=== PATIENT | female | born 1990 | race African-American/Black ===

== ENCOUNTER 2020-12-18 12:19 | Emergency (ER) | payer MEDICAID ==
[~2020-12-18] VITALS: Ht 165.1 cm; Wt 62.7 kg
--- NOTE | 2020-12-18 12:59 | NUR ---
PT C/O N/V TIMES 2 WEEKS. PT IS PREGANANT AND ESTIMATES HERSELF TO BE 12 WEEKS ALONG. PT HAD LIGHT SPOTTING A WEEK AGO. NO HEAVY BLEEDING. THIS IS THE PT'S SECOND PREGANANCY. 1 LIVE CHILD, 8 YEAR OLD FEMALE. PT DENIES DIARRHEA.
[2020-12-18] MEDS ORDERED: ONDANSETRON ODT 4 MG ONE (13:07)
[2020-12-18 13:12] LABS: MICROSCOPIC NOT IND
[2020-12-18 13:20] LABS: BASOPHILS % (AUTO) 1 % (0-1); EOSINOPHILS % (AUTO) 2 % (1-7); LYMPHOCYTES % (AUTO) 20 % (22-44); MEAN CORPUSCULAR HEMOGLOBIN 30.4 pg (27.0-34.8); MEAN CORPUSCULAR HGB CONC 34.3 g/dL (32.4-35.8); MEAN PLATELET VOLUME 8.1 fL (7.4-10.4); MONOCYTES % (AUTO) 11 % (2-9); NEUTROPHILS % (AUTO) 67 % (42-75); PLATELET COUNT 293 x10^3/uL (130-400); RED BLOOD COUNT 3.99 x10^6/uL (3.82-5.3); RED CELL DISTRIBUTION WIDTH 13.5 % (9.6-15.2)
[2020-12-18 13:22] LABS: MD NO
--- NOTE | 2020-12-18 13:26 | NUR ---
PT OFF THE FLOOR TO US
[2020-12-18 13:30] LABS: ALANINE AMINOTRANSFERASE 19 U/L (12-78); ALBUMIN 3.5 g/dL (3.4-5.0); ANION GAP 4 mmol/L (5-15); CALCIUM 9.1 mg/dL (8.5-10.1); CHLORIDE 107 mmol/L (98-107)
[2020-12-18] MEDS ORDERED: ONDANSETRON ODT 4 MG PO ONE (13:30)
[2020-12-18 13:49] LABS: ALKALINE PHOSPHATASE 49 U/L (45-117); BILIRUBIN,TOTAL 0.3 mg/dL (0.2-1.0); TOTAL PROTEIN 6.6 g/dL (6.4-8.2)
[2020-12-18 14:30] VITALS: BP 101/56
--- NOTE | 2020-12-18 15:24 | NUR ---
PT REC'VD DC INSTRUCTIONS AND EDUCATION. PT HAD NO FURTHER QUESTIONS. PT AMBULATED TO DC AREA, STEADY GAIT.
== END 2020-12-18 15:27 | disposition home or self-care (01) ==
LOC: ED 15:00
DX: O26.891 Other specified pregnancy related conditions, first trimester (principal); O46.91 Antepartum hemorrhage, unspecified, first trimester; O99.331 Smoking (tobacco) complicating pregnancy, first trimester; R11.2 Nausea with vomiting, unspecified; R10.9 Unspecified abdominal pain; F17.200 Nicotine dependence, unspecified, uncomplicated; Z3A.11 11 weeks gestation of pregnancy
CPT/HCPCS: 36415; 76801; 80053; 81003; 83690; 84702; 85025; 86901; 99284; Q0162

== ENCOUNTER 2021-08-11 11:38 | Emergency (ER) | payer MEDICAID ==
[~2021-08-11] VITALS: Ht 162.6 cm; Wt 57.0 kg
[2021-08-11] MEDS ORDERED: ONDANSETRON ODT 4 MG ONE (12:07)
--- NOTE | 2021-08-11 12:11 | NUR ---
PT MEDICATED WITH ZOFRAN IN TRIAGE. PROVIDED WITH URINE CUP.
[2021-08-11 12:52] LABS: BASOPHILS % (AUTO) 1 % (0-1); EOSINOPHILS % (AUTO) 4 % (1-7); LYMPHOCYTES % (AUTO) 12 % (22-44); MEAN CORPUSCULAR HEMOGLOBIN 28.5 pg (27.0-34.8); MEAN CORPUSCULAR HGB CONC 33.9 g/dL (32.4-35.8); MONOCYTES % (AUTO) 7 % (2-9); NEUTROPHILS % (AUTO) 77 % (42-75); PLATELET COUNT 398 x10^3/uL (130-400); RED BLOOD COUNT 4.27 x10^6/uL (3.82-5.3); RED CELL DISTRIBUTION WIDTH 17.3 % (9.6-15.2)
[2021-08-11] MEDS ORDERED: ONDANSETRON ODT 4 MG PO ONE (13:00)
[2021-08-11 13:03] LABS: ALBUMIN 3.9 g/dL (3.4-5.0); ANION GAP 7 mmol/L (5-15); CALCIUM 8.8 mg/dL (8.5-10.1); CHLORIDE 110 mmol/L (98-107)
[2021-08-11 13:10] LABS: ALANINE AMINOTRANSFERASE 28 U/L (12-78); ALKALINE PHOSPHATASE 68 U/L (45-117); BILIRUBIN,TOTAL 0.3 mg/dL (0.2-1.0); CREATININE 0.81 mg/dL (0.55-1.02); TOTAL PROTEIN 7.7 g/dL (6.4-8.2)
--- NOTE | 2021-08-11 15:31 | NUR ---
not in lobby at 1520
--- NOTE | 2021-08-11 15:56 | NUR ---
NA X2
== END 2021-08-11 16:20 | disposition left against medical advice (07) ==
LOC: ED 14:00
DX: R10.30 Lower abdominal pain, unspecified (principal); R11.10 Vomiting, unspecified
CPT/HCPCS: 36415; 80053; 83690; 84703; 85025; 99283; Q0162